=== PATIENT | female | born 1955 | race Caucasian/White ===

== ENCOUNTER 2021-08-26 08:45 | Outpatient (CLI) | payer MEDICARE ==
--- NOTE | 2021-08-27 09:04 | Mammography Report ---
BILATERAL DIGITAL SCREENING MAMMOGRAM 3D/2D WITH EXAGGERATED CC: 08/26/2021 CLINICAL: Routine screening. Family history of breast cancer. Baseline exam. No prior exams were available for comparison. The tissue of both breasts is heterogeneously dense. T his may lower the sensitivity of mammography. There is a focal asymmetry in the right breast at 9 o'clock anterior depth. There is an asymmetry in the left breast posterior depth superior region seen on the mediolateral obl ique view only. No other significant masses or calcifications are seen in either breast. IMPRESSION: INCOMPLETE: NEEDS ADDITIONAL IMAGING EVALUATION The focal asymmetry in the right breast at 9 o'clock anterior depth is indeterminate. Additional vie ws with possible ultrasound are recommended. The asymmetry in the left breast posterior depth superior region seen on the mediolateral oblique vie w only likely represents a lymph node and is indeterminate. Additional views with possible ultrasoun d are recommended. Based on the Tyrer Cuzick model (a risk assessment model) the patients lifetime risk is 12.2% and he r 10 year risk is 6.5%. According to the ACR, ACS, and NCCN guidelines, an annual breast MRI exam marilu ng with mammogram is recommended if the patients lifetime risk is 20% or greater. This exam was interpreted at Station ID: [id number]. NOTE: For mammograms, a report in lay terms will be sent to the patient. Approximately 15% of breast malignancies will not be visualized mammographically. In the management of a palpable breast mass, a negative mammogram must not discourage biopsy of a clinically suspicious lesion. Electronically Signed By: Shanna Brown M.D. lk/:08/26/2021 13:30:01 ACR BI-RADS Category 0: Incomplete 3340F PARENCHYMAL PATTERN: (D) - The breast(s) demonstrate(s) heterogeneously dense fibroglandular parenchy ma. BI-RADS CATEGORY: (0) - 0 Mammo and [place] [id number] Immediate follow-up LATERALITY: (B)
== END 2021-08-26 08:46 | disposition home or self-care (01) ==
LOC: DI.S 08:45
PROVIDERS: ATTEND Internal Medicine
DX: Z12.31 Encounter for screening mammogram for malignant neoplasm of breast (principal); Z80.3 Family history of malignant neoplasm of breast; R92.8 Other abnormal and inconclusive findings on diagnostic imaging of breast

== ENCOUNTER 2021-09-25 10:38 | Outpatient (CLI) | payer MEDICARE ==
--- NOTE | 2021-09-26 14:10 | Ultrasound Report ---
LIMITED ULTRASOUND OF RIGHT BREAST: 09/25/2021 CLINICAL: Patient returns today to evaluate a focal asymmetry in the right breast. Comparison is made to exams dated: 09/25/2021 mammogram and 08/26/2021 mammogram - [facility]. Color flow ultrasound of the right breast 9 o'clock region was performed. Osullivan scale images of the r eal-time examination were reviewed. There is a 0.8 cm x 0.5 cm x 0.3 cm normal lymph node in the right breast at 9 o'clock middle depth 5 cm from the nipple. This normal lymph node displays fatty hilum. Color flow imaging demonstrates th at there is vascularity present. This correlates with mammography findings. IMPRESSION: BENIGN The mammographic finding in the right breast correlates with a 0.8 cm x 0.5 cm x 0.3 cm normal lymph node and is benign. There is no sonographic evidence of malignancy. Return to annual mammogram screening schedule is recommended. Findings and recommendations were conveyed to the patient at time of exam. This exam was interpreted at Station ID: [id number]. Electronically Signed By: Meg spears/:09/25/2021 12:11:47 Ultrasound BI-RADS: 2 Benign BI-RADS CATEGORY: (2) - 2 Mammogram [id number] return to screening LATERALITY: (B)
--- NOTE | 2021-09-26 14:10 | Ultrasound Report ---
LIMITED ULTRASOUND OF LEFT BREAST: 09/25/2021 CLINICAL: Patient returns today to evaluate a focal asymmetry in the left breast. Comparison is made to exams dated: 09/25/2021 mammogram and 08/26/2021 mammogram - [facility]. Color flow ultrasound of the left breast upper outer quadrant was performed. Osullivan scale images of t he real-time examination were reviewed. There is a 0.7 cm x 0.8 cm x 0.5 cm normal lymph node in the left axillary tail 13 cm from the nipple . This normal lymph node displays fatty hilum. Color flow imaging demonstrates that there is appropr iate hilar vascularity present. This correlates well with mammography findings. IMPRESSION: BENIGN The mammographic abnormality seen on screening corresponds to a benign 0.7 cm x 0.8 cm x 0.5 cm yuridia l lymph node. There is no sonographic evidence of malignancy. Return to annual mammogram screening schedule is recommended. Findings and recommendations were conveyed to the patient at time of exam. This exam was interpreted at Station ID: [id number]. Electronically Signed By: Meg spears/:09/25/2021 12:09:44 Ultrasound BI-RADS: 2 Benign BI-RADS CATEGORY: (2) - 2 Mammogram [id number] return to screening LATERALITY: (B)
--- NOTE | 2021-09-26 14:10 | Mammography Report ---
BILATERAL DIGITAL DIAGNOSTIC MAMMOGRAM 3D/2D: 09/25/2021 CLINICAL: Patient returns today to evaluate a focal asymmetry in the right breast. Patient returns to day to evaluate an asymmetry in the left breast. Comparison is made to exam dated: 08/26/2021 mammogram - [facility]. There are sca ttered fibroglandular elements in both breasts. There is an 8 mm oval low density focal asymmetry in the right breast at 9 o'clock anterior depth. T his is confirmed with additional views. There is a 1.1 cm oval high density asymmetry with a circumscribed margin in the left breast posterio r depth superior region seen on the mediolateral oblique view only. This is seen in additional views . No other significant masses or calcifications are seen in either breast. IMPRESSION: INCOMPLETE: NEEDS ADDITIONAL IMAGING EVALUATION The 8 mm oval low density focal asymmetry in the right breast at 9 o'clock anterior depth most likely is a lymph node but remains indeterminate. A right breast ultrasound is recommended. This was perf ormed immediately following this exam. The 1.1 cm oval high density asymmetry in the left breast posterior depth superior region seen on the mediolateral oblique view only most likely is a lymph node but remains indeterminate. A left breas t ultrasound is recommended. This was performed immediately following this exam. Based on the Tyrer Cuzick model (a risk assessment model) the patients lifetime risk is 13.6% and he r 10 year risk is 7.3%. According to the ACR, ACS, and NCCN guidelines, an annual breast MRI exam marilu ng with mammogram is recommended if the patients lifetime risk is 20% or greater. This exam was interpreted at Station ID: [id number]. NOTE: For mammograms, a report in lay terms will be sent to the patient. Approximately 15% of breast malignancies will not be visualized mammographically. In the management of a palpable breast mass, a negative mammogram must not discourage biopsy of a clinically suspicious lesion. Electronically Signed By: Meg spears/:09/25/2021 11:48:16 ACR BI-RADS Category 0: Incomplete 3340F PARENCHYMAL PATTERN: (A) - The breast(s) demonstrate(s) scattered fibroglandular densities. BI-RADS CATEGORY: (0) - 0 Ultrasound [id number] Immediate follow-up LATERALITY: (B)
== END 2021-09-25 10:39 | disposition home or self-care (01) ==
LOC: DI 10:38
PROVIDERS: ATTEND Internal Medicine
DX: R59.0 Localized enlarged lymph nodes (principal)

== ENCOUNTER 2021-11-19 07:51 | Day surgery (SDC) | payer MEDICARE ==
[2021-11-19] MEDS ORDERED: LACTATED RINGERS 1,000 ML IV ONE ×2 (08:03→10:15)
--- NOTE | 2021-11-19 09:17 | ANESTHESIA ---
Pre-Anesthesia VS, & Labs - Diagnosis screening - Procedure colonoscopy Vital Signs: Temp Pulse Resp BP Pulse Ox O2 Flow Rate 36.5 C 77 16 173/93 H 99 0 11/19/21 08:04 11/19/21 08:04 11/19/21 08:04 11/19/21 08:04 11/19/21 08:04 11/19/21 08:04 Height: 5 ft 9 in Weight (kg): 83.6 kg Body Mass Index: 27.2 BMI Classification: Overweight - NPO >8 hours Last Fluid Intake: am prep - Is Patient ?: No - Lab Results Lab results reviewed: Yes Home Medications and Allergies Home Medications: Ambulatory Orders Amlodipine Besylate [Norvasc] 2.5 mg PO DAILY 10/27/21 Amlodipine Besylate [Norvasc] 2.5 mg PO DAILY 10/27/21 Allergies/Adverse Reactions: Allergies Allergy/AdvReac Type Severity Reaction Status Date / Time No Known Drug Allergies Allergy Verified 11/19/21 08:03 Anes History & Medical History - Anesthetic History Anesthesia Complications: reports: No previous complications Family history of Anesthesia Complications: Denies Family history of Malignant Hyperthermia: Denies - Medical History Cardiovascular: reports: Hypertension Pulmonary: reports: None Gastrointestinal: reports: None Urinary: reports: None Musculoskeletal: reports: None Skin: reports: None - Surgical History Orthopedic: reports: Other (bunionectomy) Exam General: Alert, Oriented x3, Cooperative Dental: WNL Mouth Openin Fingerbreadth Neck Mobility: Normal Mallampati classification: III Thyromental Distance: 4-6 cm Respiratory: Lungs clear, Normal breath sounds, No respiratory distress Cardiovascular: Regular rate Neurological: Normal speech Mental/Cognitive Status: Alert/Oriented X3, Normal for patient Cognitive Status: Within normal limits Plan Anesthesia Type: Total IV Consent for Procedure(s) Verified and Reviewed: Yes Code Status: Attempt Resuscitation ASA classification: 2-Mild systemic disease Is this case an emergency?: No
[2021-11-19] MEDS ORDERED: PROPOFOL 500 MG/50 ML 500 MG/50 ML VIAL ONE (10:01)
[2021-11-19] MEDS ORDERED: PROPOFOL 200 MG/20 ML VIAL IVP ONE (10:08)
[2021-11-19 10:58] VITALS: BP 127/70
--- NOTE | 2021-11-19 14:03 | ANESTHESIA POST OP EVALUATION ---
Anesthesia Post Eval - Post Anesthesia Eval Vitals: Last Vital Signs Temp 36.3 C L 11/19/21 10:57 Pulse 62 11/19/21 10:57 Resp 16 11/19/21 10:57 BP 127/70 11/19/21 10:57 Pulse Ox 96 11/19/21 10:57 O2 Flow Rate 0 11/19/21 08:04 CV Function Including HR & BP: Stable Pain Control: Satisfactory Nausea & Vomiting: Negative Mental Status: Baseline Respiratory Status: Airway Patent Hydration Status: Satisfactory Anesthesia Complications: None
== END 2021-11-19 07:52 | disposition home or self-care (01) ==
LOC: SDS 07:51
PROVIDERS: ATTEND Surgery
PROC: 0DBN8ZX Excision of Sigmoid Colon, Via Natural or Artificial Opening Endoscopic, Diagnostic (ICD-10-PCS; principal; 2021-11-19 09:00)
DX: Z12.11 Encounter for screening for malignant neoplasm of colon (principal); K63.5 Polyp of colon; K64.8 Other hemorrhoids; K57.30 Diverticulosis of large intestine without perforation or abscess without bleeding; I10 Essential (primary) hypertension
CPT/HCPCS: 45380; J7120

== ENCOUNTER 2022-08-19 12:11 | Outpatient (CLI) | payer MEDICARE ==
[2022-08-19 12:25] LABS: BASOPHILS % (AUTO) 0.4 %; EOSINOPHILS # (AUTO) 0.2 10^3/uL (0.0-0.7); HCT - HEMATOCRIT 38.2 % (37.0-47.0); HGB - HEMOGLOBIN 12.7 g/dL (12.0-16.0); LYMPHOCYTES # (AUTO) 2.2 10^3/uL (1.5-3.5); LYMPHOCYTES % (AUTO) 25.4 %; MEAN CORPUSCULAR HEMOGLOBIN 30.4 pg (27.0-31.0); MEAN CORPUSCULAR HGB CONC 33.2 g/dL (32.0-36.0); MEAN CORPUSCULAR VOLUME 91.4 fL (81.0-99.0); MEAN PLATELET VOLUME 9.9 fL (7.9-10.8); MONOCYTES # (AUTO) 0.9 10^3/uL (0.0-1.0); MONOCYTES % (AUTO) 10.5 %; NEUTROPHILS # (AUTO) 5.2 10^3/uL (1.5-6.6); NEUTROPHILS % (AUTO) 61.3 %; PLT - PLATELET COUNT 327 10^3/uL (130-450); RED BLOOD COUNT 4.18 10^6/uL (4.20-5.40); RED CELL DISTRIBUTION WIDTH 12.2 % (12.0-15.0); WHITE BLOOD COUNT 8.5 x10^3/uL (4.8-10.8)
[2022-08-19 15:14] LABS: RHEUMATOID FACTOR NEGATIVE (Negative)
[2022-08-20 20:08] LABS: CYCLIC CITRULLINATED PEP IGG/A 5 units (0-19)
[2022-08-21 10:10] LABS: LYME TOTAL AB CIA Negative (Negative)
== END 2022-08-19 12:12 | disposition home or self-care (01) ==
LOC: LAB 12:11
PROVIDERS: ATTEND Internal Medicine
DX: M25.539 Pain in unspecified wrist (principal)
CPT/HCPCS: 36415; 84550; 85025; 86200; 86430; 86618